=== PATIENT | female | born 1995 | race African-American/Black ===

== ENCOUNTER 2017-04-28 16:43 | Emergency (ER) | payer OTHER ==
[2017-04-28] MEDS ORDERED: ACETAMINOPHEN 325 MG TABLET PO ONE (16:55)
--- NOTE | 2017-04-28 17:09 | ER Document Report ---
ED Medical Screen (RME) - General Mode of Arrival: Ambulatory Information source: Patient TRAVEL OUTSIDE OF THE [place] IN LAST 30 DAYS: No <RICHARD ZIMMER - Last Filed: 04/28/17 17:02> <GUANAKITO WYNNE - Last Filed: 04/28/17 18:23> - General Chief Complaint: Abdominal Cramping Stated Complaint: CRAMPING/ Time Seen by Provider: 04/28/17 16:54 Notes: Pt is a 22 year old female who presents to the ER today for abdominal cramping and pressure that has been "going on for a while" but worsened today, worse on the right side. She has had no care and has no idea how she is. She is taking vitamins [id number]. Pt also has back pain but she states it's no more than normal for her. She denies any vaginal discharge, vaginal bleeding, fever, chills, dysuria. (RICHARD ZIMMER) - Related Data Allergies/Adverse Reactions: No Known Allergies Allergy (Unverified 04/28/17 16:45) Past Medical History - General Information source: Patient Renal/ Medical History: Denies: Hx Peritoneal Dialysis <RICHARD ZIMMER - Last Filed: 04/28/17 17:02> Review of Systems - Review of Systems Female Genitourinary: See HPI <RICHARD ZIMMER - Last Filed: 04/28/17 17:02> Physical Exam <RICHARD ZIMMER - Last Filed: 04/28/17 17:02> <GUANAKITO WYNNE - Last Filed: 04/28/17 18:23> - Vital signs Vitals: Temp Pulse Resp BP Pulse Ox 98.7 F 69 20 112/63 100 04/28/17 16:45 04/28/17 16:45 04/28/17 16:45 04/28/17 16:45 04/28/17 16:45 - Notes Notes: PHYSICAL EXAMINATION: GENERAL: Well-appearing and in no acute distress. ABDOMEN: gravid abdomen, fundus felt above umbilicus, no tenderness. No guarding , no rebound (RICHARD ZIMMER) Course - Laboratory Result Diagrams: 04/28/17 17:31 04/28/17 17:31 <GUANAKITO WYNNE - Last Filed: 04/28/17 18:23> - Vital Signs Vital signs: Temp Pulse Resp BP Pulse Ox 98.7 F 69 20 112/63 100 04/28/17 16:45 04/28/17 16:45 04/28/17 16:45 04/28/17 16:45 04/28/17 16:45 - Laboratory Laboratory results interpreted by me: 04/28/17 17:31 Sodium 135.7 L Doctor's Discharge <RICHARD ZIMMER - Last Filed: 04/28/17 17:02> <GUANAKITO WYNNE - Last Filed: 04/28/17 18:23> - Discharge Clinical Impression: , Cramping affecting , antepartum Condition: Stable Disposition: LABOR CHECK Instructions: [facility] ([facility])
[2017-04-28 17:50] LABS: ABSOLUTE EOSINOPHILS # (AUTO) 0.1 10^3/uL (0.0-0.6); ABSOLUTE LYMPHOCYTES (AUTO) 1.2 10^3/uL (0.5-4.7); ABSOLUTE MONOCYTES (AUTO) 0.7 10^3/uL (0.1-1.4); ABSOLUTE NEUT (AUTO) 3.7 10^3/uL (1.7-8.2); BASOPHILS % (AUTO) 0.2 % (0-2); HEMATOCRIT 36.8 % (36.0-47.0); HEMOGLOBIN 12.2 g/dL (12.0-15.5); HGB HCT DIFFERENCE -0.2; MEAN CORPUSCULAR HEMOGLOBIN 28.1 pg (27.0-33.4); MEAN CORPUSCULAR HGB CONC 33.2 g/dL (32.0-36.0); MEAN CORPUSCULAR VOLUME 85 fl (80-97); MONOCYTES % (AUTO) 12.4 % (3-13); RED BLOOD COUNT 4.34 10^6/uL (3.72-5.28); RED CELL DISTRIBUTION WIDTH 12.8 % (11.5-14.0); SEGMENTED NEUTROPHILS % (AUTO) 65.4 % (42-78); WHITE BLOOD COUNT 5.7 10^3/uL (4.0-10.5)
[2017-04-28 17:57] LABS: APPEARANCE,URINE CLEAR; BILIRUBIN,URINE NEGATIVE (NEGATIVE); GLUCOSE, URINE NEGATIVE (NEGATIVE); KETONES,URINE NEGATIVE (NEGATIVE); LEUKOCYTE ESTERASE,URINE NEGATIVE (NEGATIVE); NITRITE,URINE NEGATIVE (NEGATIVE); PROTEIN,URINE NEGATIVE (NEGATIVE); URINE SPECIFIC GRAVITY 1.005; UROBILINOGEN,URINE NEGATIVE mg/dL (<2.0)
[2017-04-28 18:03] LABS: ALANINE AMINOTRANSFERASE 19 U/L (9-52); ALBUMIN 3.8 g/dL (3.5-5.0); ALKALINE PHOSPHATASE 85 U/L (38-126); ANION GAP 9 (5-19); ASPARTATE AMINO TRANSFERASE 19 U/L (14-36); BILIRUBIN,DIRECT 0.2 mg/dL (0.0-0.4); BILIRUBIN,TOTAL 0.5 mg/dL (0.2-1.3); BLOOD UREA NITROGEN 9 mg/dL (7-20); CALCIUM 9.3 mg/dL (8.4-10.2); CARBON DIOXIDE 24 mmol/L (22-30); CHLORIDE 103 mmol/L (98-107); CREATININE RESULT 0.68 mg/dL (0.52-1.25); GLUCOSE 78 mg/dL (75-110); LIPASE 195.5 U/L (23-300); POTASSIUM 4.1 mmol/L (3.6-5.0); SODIUM 135.7 mmol/L (137-145); TOTAL PROTEIN 6.8 g/dL (6.3-8.2)
--- NOTE | 2017-04-28 18:35 | RADIOLOGY REPORT (SQ) ---
EXAM DESCRIPTION: U/S OB 14+ TRNABD 1GES W/O DOP COMPLETED DATE/TIME: 04/28/2017 6:26 pm REASON FOR STUDY: cramping, no care, obv COMPARISON: None. TECHNIQUE: Static and Dynamic grayscale imaging performed of gravid uterus using transabdominal appr oach. Additional selected color Doppler and spectral images recorded. All stored on PACS. LIMITATIONS: None. FINDINGS: EGA: 24 week 6 day. TING: 08/12/2017. EFW: 744 g. CRIS: Largest pocket measures 4.1 cm. PLACENTA: Anterior. PRESENTATION: Cephalic. ANATOMY: HEART RATE: 147 beats per minute. FOUR CHAMBER HEART: Visualized. THREE VESSEL CORD: Yes. CORD INSERTION: Visualized. KIDNEYS AND BLADDER: Visualized. Appear normal. STOMACH: Visualized. Appears normal. SPINE: Normal as visualized. BRAIN AND LATERAL VENTRICLES: Visualized. Appear normal. OTHER: No other significant finding. MATERNAL ADNEXA: Maternal ovaries within normal limits. CERVICAL LENGTH: 3.0 cm. Closed. OTHER: No other significant finding. IMPRESSION: LIVING INTRAUTERINE . ESTIMATED GESTATIONAL AGE 24 WEEK 6 DAY. NO VISUALIZED ANOMALIES. Trimester of : Second trimester - 13 weeks 1 day to 27 weeks 6 days. TECHNICAL DOCUMENTATION: JOB ID: [id number] [employer]- All Rights Reserved
[2017-04-28 18:42] VITALS: BP 117/72
--- NOTE | 2017-04-28 19:47 | ER Document Report ---
ED GI/ - General Mode of Arrival: Ambulatory TRAVEL OUTSIDE OF THE [place] IN LAST 30 DAYS: No - HPI Patient complains to provider of: Other - abdominal cramping Onset: Other - 2 weeks ago Location: RLQ Vaginal bleeding (Compared to normal period): None Associated symptoms: Other - see notes above <LAVERN YEUNG - Last Filed: 04/28/17 19:49> <GUANAKITO WYNNE - Last Filed: 04/28/17 21:34> - General Chief Complaint: Abdominal Cramping Stated Complaint: CRAMPING/ Time Seen by Provider: 04/28/17 16:54 Notes: 22 year old female (24 weeks; G1) with history of lymphedema presents to the ED complaining of increasing right sided abdominal cramping that started 2 dasia ago. Patient reports that she is taking pre-malena vitamins and does not have OB care. Patient is in agreement to being evaluated by L&D. (LAVERN YEUNG) - Related Data Allergies/Adverse Reactions: No Known Allergies Allergy (Unverified 04/28/17 16:45) Past Medical History - General Information source: Patient - Social History Smoking Status: Never Smoker Chew tobacco use (# tins/day): No Frequency of alcohol use: None Drug Abuse: None Family History: Reviewed & Not Pertinent Patient has suicidal ideation: No Patient has homicidal ideation: No - Past Medical History Cardiac Medical History: Reports: Other - lymphedema Renal/ Medical History: Denies: Hx Peritoneal Dialysis Surgical Hx: Negative - Immunizations Hx Diphtheria, Pertussis, Tetanus Vaccination: No <LAVERN YEUNG - Last Filed: 04/28/17 19:49> Review of Systems - Review of Systems Constitutional: No symptoms reported EENT: No symptoms reported Cardiovascular: No symptoms reported Respiratory: No symptoms reported Gastrointestinal: See HPI, Abdominal pain - right sided abdominal cramping Genitourinary: No symptoms reported Female Genitourinary: See HPI, - 24 weeks Musculoskeletal: No symptoms reported Skin: No symptoms reported Hematologic/Lymphatic: No symptoms reported Neurological/Psychological: No symptoms reported -: Yes All other systems reviewed and negative <LAVERN YEUNG - Last Filed: 04/28/17 19:49> Physical Exam - General General appearance: Alert In distress: None - HEENT Head: Normocephalic, Atraumatic Eyes: Normal Extraocular movements intact: Yes Pupils: PERRL - Respiratory Respiratory status: No respiratory distress Breath sounds: Normal - Cardiovascular Rhythm: Regular Heart sounds: Normal auscultation - Abdominal Inspection: Normal, Gravid female Distension: No distension Tenderness: Nontender - Back Back: Normal - Extremities General upper extremity: Normal inspection, Normal ROM General lower extremity: Normal inspection, Normal ROM - Neurological Neuro grossly intact: Yes Cognition: Normal Orientation: AAOx4 Darek Coma Scale Eye Opening: Spontaneous Darek Coma Scale Verbal: Oriented Darek Coma Scale Motor: Obeys Commands Darek Coma Scale Total: 15 Speech: Normal - Psychological Associated symptoms: Normal affect, Normal mood - Skin Skin Temperature: Warm Skin Moisture: Dry Skin Color: Normal <LAVERN YEUNG - Last Filed: 04/28/17 19:49> Course - Laboratory Result Diagrams: 04/28/17 17:31 04/28/17 17:31 <LAVERN YEUNG - Last Filed: 04/28/17 19:49> - Laboratory Result Diagrams: 04/28/17 17:31 04/28/17 17:31 - Diagnostic Test Radiology reviewed: Reports reviewed <GUANAKITO WYNNE - Last Filed: 04/28/17 21:34> - Re-evaluation Re-evalutation: 04/28/17 Patient is a 22-year-old female who presents to the emergency department for abdominal cramping. Patient is 24 weeks and 6 days . Patient denies pain at this time but has been having some cramping more steadily. Patient has been taking vitamins, but has not had any care. Patient will be sent to labor and delivery for further evaluation. Otherwise stable. (GUANAKITO WYNNE) - Vital Signs Vital signs: Temp Pulse Resp BP Pulse Ox 98.7 F 76 16 117/72 100 04/28/17 16:45 04/28/17 18:30 04/28/17 18:30 04/28/17 18:30 04/28/17 18:30 - Laboratory Laboratory results interpreted by me: 04/28/17 17:31 Sodium 135.7 L Beta HCG, Quant 35809.00 H Discharge <LAVERN YEUNG - Last Filed: 04/28/17 19:49> <GUANAKITO WYNNE - Last Filed: 04/28/17 21:34> - Discharge Clinical Impression: Cramping affecting , antepartum Qualifiers: Weeks of gestation: 24 weeks Qualified Code(s): Z3A.24 - 24 weeks gestation of Condition: Stable Disposition: LABOR CHECK Instructions: [facility] ([facility]) Scribe Attestation: 04/28/17 21:34 I personally performed the services described in the documentation, reviewed and edited the documentation which was dictated to the scribe in my presence, and it accurately records my words and actions. (GUANAKITO WYNNE) Scribe Documentation - Scribe Written by Oscar:: Oscar Canchola, 04/28/2017 194 acting as scribe for :: Beni <LAVERN YEUNG - Last Filed: 04/28/17 19:49>
== END 2017-04-28 18:39 | disposition admitted as inpatient to this hospital (09) ==
LOC: ER 16:43
DX: O26.892 Other specified pregnancy related conditions, second trimester (principal); R10.31 Right lower quadrant pain; O09.32 Supervision of pregnancy with insufficient antenatal care, second trimester; Z79.899 Other long term (current) drug therapy; Z3A.24 24 weeks gestation of pregnancy
CPT/HCPCS: 36415; 76805; 80053; 81001; 83690; 84702; 85025; 99284

== ENCOUNTER 2017-04-28 18:27 | Outpatient (CLI) | payer OTHER ==
[2017-04-28 19:22] LABS: APPEARANCE,URINE CLEAR; BILIRUBIN,URINE NEGATIVE (NEGATIVE); GLUCOSE, URINE NEGATIVE (NEGATIVE); KETONES,URINE NEGATIVE (NEGATIVE); LEUKOCYTE ESTERASE,URINE NEGATIVE (NEGATIVE); NITRITE,URINE NEGATIVE (NEGATIVE); PROTEIN,URINE NEGATIVE (NEGATIVE); URINE SPECIFIC GRAVITY 1.005; UROBILINOGEN,URINE NEGATIVE mg/dL (<2.0)
[2017-04-28 19:35] LABS: URINE BARBITURATES SCREEN NEGATIVE; URINE METHADONE SCREEN NEGATIVE; URINE OPIATES LOW NEGATIVE; URINE PHENCYCLIDINE SCREEN NEGATIVE
[2017-04-28 19:44] LABS: ABSOLUTE EOSINOPHILS # (AUTO) 0.1 10^3/uL (0.0-0.6); ABSOLUTE LYMPHOCYTES (AUTO) 1.3 10^3/uL (0.5-4.7); ABSOLUTE MONOCYTES (AUTO) 0.8 10^3/uL (0.1-1.4); ABSOLUTE NEUT (AUTO) 3.9 10^3/uL (1.7-8.2); BASOPHILS % (AUTO) 0.2 % (0-2); LYMPHOCYTES % (AUTO) 20.9 % (13-45); MEAN CORPUSCULAR HEMOGLOBIN 28.1 pg (27.0-33.4); MEAN CORPUSCULAR HGB CONC 32.6 g/dL (32.0-36.0); MEAN CORPUSCULAR VOLUME 86 fl (80-97); MONOCYTES % (AUTO) 12.7 % (3-13); RED BLOOD COUNT 4.29 10^6/uL (3.72-5.28); RED CELL DISTRIBUTION WIDTH 12.7 % (11.5-14.0); SEGMENTED NEUTROPHILS % (AUTO) 65.2 % (42-78)
[2017-04-28 20:49] LABS: ADD HIVPANEL? NO; HIV (1 AND 2) ANTIBODY NEGATIVE (NEGATIVE)
[2017-04-28 21:41] LABS: CHLAM PCR NOT DETECTED (NOT DETECT)
== END 2017-04-28 22:00 | disposition home or self-care (01) ==
LOC: LC 18:27
PROVIDERS: ATTEND Student in an Organized Health Care Education/Training Program
DX: O47.9 False labor, unspecified (principal)
CPT/HCPCS: 36415; 80307; 81001; 85025; 86592; 86701; 86762; 86850; 86900; 86901; 87210; 87340; 87491; 87591